=== PATIENT | male | born 1935 | race Caucasian/White ===

== ENCOUNTER 2016-08-06 21:26 | Inpatient (IN) | payer OTHER, MEDICARE ==
[~2016-08-06] VITALS: Ht 172.7 cm; Wt 68.0 kg
--- NOTE | 2016-08-06 21:30 | NUR ---
Received pt from [facility] #[id number] via stretcher, alert to self and place.
[2016-08-06] MEDS ORDERED: IV NORMAL SALINE 1000 ML BAG IV ONE (22:00)
[2016-08-06 22:23] LABS: BASOPHILS % (AUTO) 0.7 % (0.0-2.0); EOSINOPHILS # (AUTO) 0.1 K/uL (0.0-0.7); EOSINOPHILS % (AUTO) 1.9 % (0.0-7.0); HEMATOCRIT 40.7 % (40-50); HEMOGLOBIN 13.2 G/DL (14.0-18.0); LYMPHOCYTES # (AUTO) 1.4 K/UL (0.8-4.8); LYMPHOCYTES % (AUTO) 20.6 % (20.5-51.5); MEAN CORPUSCULAR HGB CONC 33 g/dL (32.0-37.0); MEAN CORPUSCULAR VOLUME 89.3 FL (82.0-92.0); MONOCYTES # (AUTO) 0.5 K/UL (0.1-1.30); MONOCYTES % (AUTO) 7.9 % (0.0-11.0); NEUTROPHILS # (AUTO) 4.6 K/UL (1.8-8.9); NEUTROPHILS % (AUTO) 68.9 % (38.5-71.5); PLATELET COUNT (AUTO) 223 K/UL (150-450); RED BLOOD CELL COUNT(AUTO) 4.56 MIL/UL (4.7-6.1); RED CELL DISTRIBUTION WIDTH 12.4 % (11.5-14.5); WHITE BLOOD COUNT (AUTO) 6.6 K/UL (4.0-11.2)
--- NOTE | 2016-08-06 22:25 | NUR ---
Left for CT via gurney.
[2016-08-06 22:30] LABS: CREATININE 0.9 mg/dL (0.6-1.3); POTASSIUM 3.6 mmol/L (3.5-5.1)
[2016-08-06 22:35] LABS: ALBUMIN 4.1 g/dL (3.4-5.0); BILIRUBIN,DIRECT 0.1 mg/dL (0.0-0.2); BILIRUBIN,TOTAL 0.5 mg/dL (0.2-1.0); TOTAL PROTEIN, SERUM 7.5 g/dL (6.4-8.2)
[2016-08-06 22:38] LABS: TROPONIN I < 0.017 ng/mL (0.00-0.056)
[2016-08-06 22:45] LABS: LACTIC ACID 2.9 mmol/L (0.4-2.0)
[2016-08-06] MEDS ORDERED: LEVETIRACETAM IV 1,000 MG in IV DEXTROSE 5% 100 ML IV SCH (23:15)
--- NOTE | 2016-08-06 23:22 | NUR ---
MARLENE spoke with Dr Hinton neurologist about Patient
[2016-08-06] MEDS ORDERED: IV D5/ 0.9% NACL 1,000 ML IV ONE (23:30)
[2016-08-06] MEDS ORDERED: LEVETIRACETAM 500 MG/5 ML VIAL IV ONE (23:53)
[2016-08-07] VITALS (56 sets, daily range): BP systolic 75–156; BP diastolic 34–96
[2016-08-07] MEDS ORDERED: ACETAMINOPHEN ES 500 MG TABLET PO ONE
[2016-08-07] MEDS ORDERED: Z GUARD REMEDY PASTE 57 GM TUBE TOP PRN (00:15)
[2016-08-07] MEDS ORDERED: MAGNESIUM HYDROXIDE 30 ML LIQUID UDC PO PRN (00:15)
--- NOTE | 2016-08-07 00:50 | NUR ---
Report given to GELACIO Jackman
[2016-08-07] MEDS ORDERED: ACETAMINOPHEN ES 500 MG TABLET ONE (01:04)
--- NOTE | 2016-08-07 01:25 | NUR ---
Transferred pt to CCU bed 2 via [place] with RN
[2016-08-07 05:11] LABS: BASOPHILS % (AUTO) 0.4 % (0.0-2.0); EOSINOPHILS % (AUTO) 0.4 % (0.0-7.0); HEMATOCRIT 33.3 % (40-50); HEMOGLOBIN 11.1 G/DL (14.0-18.0); LYMPHOCYTES # (AUTO) 0.8 K/UL (0.8-4.8); LYMPHOCYTES % (AUTO) 10.7 % (20.5-51.5); MEAN CORPUSCULAR HEMOGLOBIN 29.9 UUG (27.0-31.0); MEAN CORPUSCULAR HGB CONC 33 g/dL (32.0-37.0); MEAN CORPUSCULAR VOLUME 89.6 FL (82.0-92.0); MONOCYTES # (AUTO) 0.5 K/UL (0.1-1.30); MONOCYTES % (AUTO) 7.4 % (0.0-11.0); NEUTROPHILS # (AUTO) 5.7 K/UL (1.8-8.9); NEUTROPHILS % (AUTO) 81.1 % (38.5-71.5); PLATELET COUNT (AUTO) 185 K/UL (150-450); RED BLOOD CELL COUNT(AUTO) 3.72 MIL/UL (4.7-6.1); RED CELL DISTRIBUTION WIDTH 12.4 % (11.5-14.5)
[2016-08-07 05:19] LABS: MAGNESIUM 1.7 mg/dL (1.8-2.4); PHOSPHOROUS 2.7 mg/dL (2.5-4.9)
[2016-08-07] MEDS ORDERED: IV NORMAL SALINE 500 ML IV ONE (05:45)
--- NOTE | 2016-08-07 05:47 | NUR ---
Patient noted to have pauses in HR as long as 6 seconds with decreased BP as low as 75/35. Notified Dr. Lugo, orders received and instructed to notify cardiology. Spoke with Dr. Chatterjee, orders received and instructed to continue to monitor for now.
--- NOTE | 2016-08-07 05:51 | NUR ---
Per Dr Lugo, hold all meds for now. Will endorse to day shift nurse as well.
[2016-08-07 05:57] LABS: CALCIUM 7.9 mg/dL (8.5-10.1)
--- NOTE | 2016-08-07 05:58 | NUR ---
Patient transferred to Radiology for CT scan. ACLS transport protocol followed.
--- NOTE | 2016-08-07 06:00 | NUR ---
Home meds not yet entered. Unable to verify medications with patient due to mental status. Will endorse to day shift nurse to call son for list of home medications.
[2016-08-07 06:18] LABS: THYROID STIMULATING HORMONE 2.123 mIU/mL (0.358-3.740)
--- NOTE | 2016-08-07 06:24 | NUR ---
Returned from CT scan. No significant events.
[2016-08-07] MEDS: PANTOPRAZOLE SODIUM 40 MG TABLET.DR PO SCH (06:31)
--- NOTE | 2016-08-07 07:30 | NUR ---
phone call was placed to for clarification of hold all meds was ordered per ,ask to call ,was call left message to call back for .
--- NOTE | 2016-08-07 07:45 | NUR ---
Labs done at 0040-lactic acid was 2.1-recheck was not done lab was call to due stat.
[2016-08-07] MEDS: MAGNESIUM SULFATE/D5W 100 ML IV SCH ×2 (07:56→08:57)
--- NOTE | 2016-08-07 09:50 | NUR ---
On monitor noted pt.start having freq pauses and then HR went to sever laura 30's/40's with cont.pauses.BP was-WDP. was paged,call back notified no orders .
--- NOTE | 2016-08-07 10:45 | NUR ---
Pt.BP 90/53 still having pauses with Davon rate, was notified order Atropin 0.5 stat and start Dopamin gtt.
[2016-08-07] MEDS ORDERED: DOPamine IV DRIP 250 ML IV PRN (11:00)
[2016-08-07] MEDS ORDERED: ATROPINE SULFATE 1 MG/10 ML DISP.SYRIN IV ONE (11:00)
[2016-08-07] MEDS ORDERED: ATROPINE SULFATE 1 MG/10 ML DISP.SYRIN ONE (11:04)
--- NOTE | 2016-08-07 12:10 | NUR ---
stat ECHO done.
--- NOTE | 2016-08-07 12:19 | NUR ---
Pt.son at bedside,was updated with pt.condition and plan of care.
[2016-08-07] MEDS: ONDANSETRON 4 MG/2 ML VIAL IV PRN (13:07)
[2016-08-07] MEDS: ACETAMINOPHEN 325 MG TABLET PO PRN (13:07)
--- NOTE | 2016-08-07 14:05 | NUR ---
Pt.was seen by . was notified for emerg.pacemaker insertion.
--- NOTE | 2016-08-07 14:40 | NUR ---
Pt.was seen by .
--- NOTE | 2016-08-07 15:35 | NUR ---
Pt.sleeping no s/s of acute distress.
[2016-08-07] MEDS ORDERED: BACITRACIN 50,000 UNITS VIAL ONE (17:25)
[2016-08-07] MEDS ORDERED: LIDOCAINE HCL 1% 20 ML VIAL ONE (17:25)
[2016-08-07] MEDS ORDERED: IOHEXOL 300MG/ML 50 ML VIAL ONE (17:25)
[2016-08-07] MEDS ORDERED: FENTANYL CITRATE 100 MCG/2 ML AMPUL ONE (17:58)
[2016-08-07] MEDS ORDERED: MIDAZOLAM HCL 2 MG/2 ML VIAL ONE (17:58)
--- NOTE | 2016-08-07 18:00 | NUR ---
Son at bedside ,pt,was picker to OR for pacemaker insertion.
--- NOTE | 2016-08-07 19:30 | NUR ---
Patient returned to CCU2 from OR. PACU nurse, Heather, at bedside for 1:1 recovery.
--- NOTE | 2016-08-07 20:00 | NUR ---
Post-op recovery 1:1 complete. Patient is resting in bed, vital signs stable. A-paced on residential monitor with underlying sinus rhythm. 2L O2 via nasal cannula, SpO2 and RR WNL. Alert/oriented x3, drowsy. Handoff report received from Giovany EWING day shift RN. SBAR report received from Heather DEPENDENCY PROGRAM DIRECTOR. Will continue plan of care.
--- NOTE | 2016-08-07 20:25 | NUR ---
Spoke with son, Kaleb Montano, to confirm home medications. Entered in reconciliation
[2016-08-07] MEDS ORDERED: ATOR10TA PO (20:37)
[2016-08-07] MEDS ORDERED: METF500T4 PO (20:37)
[2016-08-07] MEDS ORDERED: LISI10TA5 PO (20:37)
[2016-08-08] VITALS (20 sets, daily range): BP systolic 112–160; BP diastolic 64–92
[2016-08-08] MEDS: ACETAMINOPHEN 325 MG TABLET PO PRN (04:17)
[2016-08-08 04:51] LABS: BASOPHILS % (AUTO) 0.6 % (0.0-2.0); EOSINOPHILS # (AUTO) 0.2 K/uL (0.0-0.7); EOSINOPHILS % (AUTO) 2.8 % (0.0-7.0); HEMATOCRIT 36.6 % (40-50); LYMPHOCYTES # (AUTO) 1.1 K/UL (0.8-4.8); LYMPHOCYTES % (AUTO) 17.5 % (20.5-51.5); MEAN CORPUSCULAR HEMOGLOBIN 29.6 UUG (27.0-31.0); MEAN CORPUSCULAR HGB CONC 33 g/dL (32.0-37.0); MEAN CORPUSCULAR VOLUME 89.9 FL (82.0-92.0); MONOCYTES # (AUTO) 0.6 K/UL (0.1-1.30); MONOCYTES % (AUTO) 8.9 % (0.0-11.0); NEUTROPHILS # (AUTO) 4.5 K/UL (1.8-8.9); NEUTROPHILS % (AUTO) 70.2 % (38.5-71.5); PLATELET COUNT (AUTO) 181 K/UL (150-450); RED BLOOD CELL COUNT(AUTO) 4.07 MIL/UL (4.7-6.1); RED CELL DISTRIBUTION WIDTH 12.8 % (11.5-14.5); WHITE BLOOD COUNT (AUTO) 6.4 K/UL (4.0-11.2)
[2016-08-08 05:08] LABS: ALBUMIN 3.3 g/dL (3.4-5.0); BILIRUBIN,TOTAL 1.1 mg/dL (0.2-1.0); CALCIUM 8.2 mg/dL (8.5-10.1); CREATININE 0.9 mg/dL (0.6-1.3); PHOSPHOROUS 2.8 mg/dL (2.5-4.9); POTASSIUM 4.3 mmol/L (3.5-5.1); TOTAL PROTEIN, SERUM 6.1 g/dL (6.4-8.2)
[2016-08-08] MEDS: PANTOPRAZOLE SODIUM 40 MG TABLET.DR PO SCH (06:27)
--- NOTE | 2016-08-08 07:38 | NUR ---
Pt.A/A/O in bed ,watching TV,no s/s of distress,denies pain.
[2016-08-08] MEDS: HYDROCODONE/APAP 5-325MG TABLET PO PRN ×2 (09:29→17:26)
--- NOTE | 2016-08-08 09:50 | NUR ---
Pacemaker [employer] summary done -WDP.
--- NOTE | 2016-08-08 11:02 | NUR ---
Pt.was seen by .
--- NOTE | 2016-08-08 12:34 | NUR ---
pt.eating lunch,no s/s of distress,denies pain @ time.
--- NOTE | 2016-08-08 16:15 | NUR ---
Pt.was seen by .
[2016-08-08] MEDS: METFORMIN HCL 500 MG TABLET PO SCH (17:24)
[2016-08-08] MEDS ORDERED: CEFAZOLIN 1 G VIAL MC ONE (18:22)
[2016-08-08] MEDS ORDERED: IV NORMAL SALINE 1000 ML BAG IV ONE (18:22)
[2016-08-08] MEDS ORDERED: PROPOFOL 200 MG/20 ML BOTTLE IV ONE (18:22)
[2016-08-08] MEDS ORDERED: LIDOCAINE HCL 1% 20 ML VIAL MC ONE (18:22)
--- NOTE | 2016-08-08 18:46 | NUR ---
Pt.up in the chair eating dinner,watching TV,family at bedside,updated with pt.condition and plan of care.
--- NOTE | 2016-08-08 20:30 | NUR ---
PATIENT WAS TRANSFERRED FROM CCU VIA W/C, ACCOMPANIED BY CHARGE NURSE IN STABLE CONDITION. ADMITTED TO TELEMETRY. PATIENT A O X 4. PACEMAKER INSERTION SITE ON THE LEFT CHEST INTACT. NSR ON THE MONITOR. NO C/O OF PAIN OR DISCOMFORT NOTED. B/P NOTED 160/92. HR 73 T- 98.3.
--- NOTE | 2016-08-08 21:00 | NUR ---
NEURO CHECK DONE WITH NO PROBLEMS
--- NOTE | 2016-08-08 21:40 | NUR ---
NOTIFIED OF ELEVATED B/P WITH NO NEW ORDERS
[2016-08-09] VITALS: BP 120/69
--- NOTE | 2016-08-09 | NUR ---
B/P WNL 120/67 NO C/O OF PAIN OR DISCOMFORT
[2016-08-09] MEDS ORDERED: INSULIN REGULAR, HUMAN 300 UNIT/3 ML VIAL SQ PRN (02:30)
[2016-08-09] MEDS ORDERED: DEXTROSE 50% 50 ML DISP.SYRIN IV PRN (02:30)
[2016-08-09] MEDS: HYDROCODONE/APAP 5-325MG TABLET PO PRN ×2 (02:47→15:20)
[2016-08-09 04:00] VITALS: BP 118/66
[2016-08-09] MEDS: PANTOPRAZOLE SODIUM 40 MG TABLET.DR PO SCH (05:59)
--- NOTE | 2016-08-09 06:11 | NUR ---
PATIENT ALERT AND AWAKE ON BED WATCHING TV. NO C/O PAIN OR ANY DISCOMFORT. SR ON THE MONITOR. PACEMAKER INSERTION SIT INTACT. NEURO CHECK DONE WITH NO DEFICITS. CALL LIGHT IN REACH
[2016-08-09] MEDS: BLOOD SUGAR DIAGNOSTIC 1 EACH STRIP VI SCH ×2 (06:51→12:17)
[2016-08-09] MEDS: METFORMIN HCL 500 MG TABLET PO SCH (08:56)
[2016-08-09 11:31] VITALS: BP 135/72
[2016-08-09] MEDS: ONDANSETRON 4 MG/2 ML VIAL IV PRN (12:44)
[2016-08-09 15:22] VITALS: BP 133/76
--- NOTE | 2016-08-09 17:15 | NUR ---
HEP. LOCK D/C'D TELE D/C'D. ALL HOME INSTRUCTIONS REVIEWED WITH PT. PRECAUTIONS RE--BP. BP MEDS, ORTHOSTSTIC HYPOTENSION, WOUND CARE AND FOLLOW-UP DISCUSSED WITH PT. 1730 PT. D/C'D TO [id number] VIA W/C TO PRIVATE CAR.
[2016-08-09] MEDS ORDERED: ATORVASTATIN 10 MG TABLET PO SCH (21:00)
== END 2016-08-09 17:20 | disposition home or self-care (01) | DRG 40 ==
LOC: ER 21:27 → CCU 08-07 00:01 → MED 08-08 20:30 → TELE 08-08 20:45 → MED 08-09 16:10
PROVIDERS: ADMIT Internal Medicine; ATTEND Internal Medicine
PROC: 02HK3JZ Insertion of Pacemaker Lead into Right Ventricle, Percutaneous Approach (ICD-10-PCS; 2016-08-07)
PROC: 0JH606Z Insertion of Pacemaker, Dual Chamber into Chest Subcutaneous Tissue and Fascia, Open Approach (ICD-10-PCS; principal; 2016-08-07 18:22)
DX: S06.5X9A Traumatic subdural hemorrhage with loss of consciousness of unspecified duration, initial encounter (principal); G93.40 Encephalopathy, unspecified; E87.2 Acidosis; I49.5 Sick sinus syndrome; E78.5 Hyperlipidemia, unspecified; E83.42 Hypomagnesemia; Z87.891 Personal history of nicotine dependence; Z95.0 Presence of cardiac pacemaker; R55 Syncope and collapse; E11.9 Type 2 diabetes mellitus without complications; W19.XXXA Unspecified fall, initial encounter; Y93.9 Activity, unspecified; Y99.9 Unspecified external cause status; Y92.009 Unspecified place in unspecified non-institutional (private) residence as the place of occurrence of the external cause
CPT/HCPCS: 36415; 70030-TC; 70450; 71010; 76000; 83605; 83735; 84100; 84443; 85025; 85730; 86850; 86900; 86901; 93005; 93307; A4649; A4663; C1769; J0461; J0690; J1265; J1815; J1953; J2250; J2405; J3010; J3475; J3490; J7030; J7040; J7042; J7050; J7060; Q9967

== ENCOUNTER 2016-08-26 03:44 | Emergency (ER) | payer MEDICARE, OTHER ==
[~2016-08-26] VITALS: Ht 170.2 cm; Wt 64.4 kg
[~2016-08-26 03:44] MED LIST: ATOR10TA PO; LISI10TA5 PO; METF500T4 PO
--- NOTE | 2016-08-26 04:21 | NUR ---
Pt to room, pt c/o dizziness and nausea this morning when woke up to use the restroom. 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 No neuro deficits noted, pt alert and oriented x 4. Pt NSR on monitor. Pt sts three wks ago he was admitted for "brain bleed" s/p fall bc his "heart stopped" at which point pace maker was placed. Pt resting in position of comfort for self. Resp even and unlabored, pt resting in position of comfort for self. MD at bedside, family at bedside.
[2016-08-26] MEDS ORDERED: ONDANSETRON ODT 4 MG TAB.RAPDIS SL ONE (04:30)
[2016-08-26] MEDS ORDERED: ONDANSETRON ODT 4 MG TAB.RAPDIS ONE (04:40)
[2016-08-26 04:42] LABS: BASOPHILS % (AUTO) 0.8 % (0.0-2.0); EOSINOPHILS # (AUTO) 0.3 K/uL (0.0-0.7); EOSINOPHILS % (AUTO) 6.5 % (0.0-7.0); HEMATOCRIT 37.8 % (40-50); HEMOGLOBIN 12.7 G/DL (14.0-18.0); LYMPHOCYTES # (AUTO) 1.2 K/UL (0.8-4.8); LYMPHOCYTES % (AUTO) 26.6 % (20.5-51.5); MEAN CORPUSCULAR HEMOGLOBIN 30.4 UUG (27.0-31.0); MEAN CORPUSCULAR HGB CONC 34 g/dL (32.0-37.0); MEAN CORPUSCULAR VOLUME 90.7 FL (82.0-92.0); MONOCYTES # (AUTO) 0.4 K/UL (0.1-1.30); MONOCYTES % (AUTO) 10.1 % (0.0-11.0); NEUTROPHILS # (AUTO) 2.5 K/UL (1.8-8.9); PLATELET COUNT (AUTO) 219 K/UL (150-450); RED BLOOD CELL COUNT(AUTO) 4.17 MIL/UL (4.7-6.1); WHITE BLOOD COUNT (AUTO) 4.4 K/UL (4.0-11.2)
[2016-08-26 04:47] LABS: CARBON DIOXIDE 29 mmol/L (21-32); CHLORIDE 106 mmol/L (98-107); CREATININE 0.9 mg/dL (0.6-1.3); GLUCOSE 143 mg/dL (74-106); POTASSIUM 4.3 mmol/L (3.5-5.1); UREA NITROGEN, BLOOD 16 mg/dL (7-18)
[2016-08-26 04:54] LABS: ALANINE AMINOTRANSFERASE 25 U/L (16-63); ALKALINE PHOSPHATASE 153 U/L (50-136); ASPARTATE AMINOTRANSFERASE 18 U/L (15-37); BILIRUBIN,DIRECT 0.1 mg/dL (0.0-0.2); BILIRUBIN,TOTAL 0.4 mg/dL (0.2-1.0); TOTAL PROTEIN, SERUM 7.2 g/dL (6.4-8.2)
--- NOTE | 2016-08-26 06:00 | NUR ---
Pt denies dizziness and nausea at this time. Pt stable for discharge per MD. Pt and family given ACI. Both verbalized understanding of dc instructions. Pt ambulated out of ER with steady gait.
[2016-08-26 06:52] VITALS: BP 150/68
== END 2016-08-26 06:00 | disposition home or self-care (01) ==
LOC: ER 03:44
DX: R42 Dizziness and giddiness (principal); I10 Essential (primary) hypertension; E11.9 Type 2 diabetes mellitus without complications; Z95.0 Presence of cardiac pacemaker; Z90.49 Acquired absence of other specified parts of digestive tract
CPT/HCPCS: 36415; 70450; 71010; 80048; 80076; 84484; 85025; 85730; 93005; 99285; A4663; Q0162; 70030-TC